=== PATIENT | female | born 1970 | race Caucasian/White ===

== ENCOUNTER 2022-03-26 10:00 | Emergency (ER) | payer MEDICARE, MEDICAID, SELFPAY ==
[2022-03-26 10:21] VITALS: BP 107/73; PULSE 91; RESP 14; TEMP 36.4; O2SAT 98; BMI 16.4
[2022-03-26 10:27] VITALS: BP 150/73; PULSE 101; O2SAT 95
[2022-03-26 11:15] LABS: Add Urine Microscopic? NO; Charge for UA Resulting for Rev
[2022-03-26 11:16] LABS: Basophils % 0.6 %; Eosinophils # 0.1 10^3/uL (0.0-0.8); Hematocrit 37.3 % (37.0-47.0); Hemoglobin 12.7 g/dL (11.5-15.3); Lymphocytes # 1.9 10^3/uL (0.8-4.8); Lymphocytes % 29.2 %; Mean Corpuscular Hemoglobin 30.5 pg (28.0-34.0); Mean Corpuscular Volume 89.7 fl (81-99); Mean Platelet Volume 9.6 fL (7.4-10.4); Monocytes # 0.4 10^3/uL (0.2-0.9); Monocytes % 6.7 %; Neutrophils # 3.91 10^3/uL (1.8-7.7); Neutrophils % 61.2 %; Nucleated Red Blood Cells % 0 %; Platelet Count 248 10^3/cmm (130-400); Red Blood Count 4.16 10^6/uL (4.1-5.3); Red Cell Distribution Width 12.5 % (12.1-15.1); White Blood Count 6.4 10^3/uL (4.0-10.0)
--- NOTE | 2022-03-26 11:18 | CT_ITS ---
WS: [id number] CT ABDOMEN AND PELVIS WITH CONTRAST HISTORY: Abdominal pain with nausea. TECHNIQUE: Imaging performed of the abdomen and pelvis with IV contrast. Single phase imaging of the abdomen. Coronal and sagittal reformats are submitted. All CT scans at [facility] use at meme st one of these dose optimization techniques: automated exposure control; mA and/or kV adjustment per patient size (includes targeted exams where dose is matched to clinical indication); or iterative re construction. IV CONTRAST: Omnipaque 350; 75 mL IV. Oral contrast: No DLP: 497.42 mGy.cm COMPARISON: None available. Lower thorax: Lung bases are clear. Heart is normal size. No hiatal hernia. Liver/biliary system: Normal size with no intrahepatic dilatation. Gallbladder: Normal. No gallstones or wall thickening. No pericholecystic fluid. Pancreas: Normal size pancreas and pancreatic duct. No adjacent inflammation. Spleen: Normal size spleen. No mass or infarct. Adrenal glands: Normal. Right kidney: Normal size kidney. Simple cyst upper pole measures 17 x 13 mm. There are additional sc attered cortical small hypodensities throughout the kidney. No perinephric stranding. No obstruction. Left kidney: Normal size kidney. There are a few scattered hypodensities throughout the renal cortex. No adjacent stranding or obstruction. Aorta: Mild atherosclerosis with no aneurysm. Lymphadenopathy: None. Free fluid: None. GI tract: Nondistended stomach. No obstruction. Prior appendectomy. There is extensive fecal retentio n. No obstructive pattern or wall thickening. No pneumatosis. Abdominal wall: Unremarkable abdominal wall. No hernia. Pelvis: No free fluid or adenopathy within the pelvis. Low-attenuation collection in the LEFT perineu m measures 2.0 x 1.8 cm. This may be a small Kajal's duct cyst. Bones: Unremarkable. CT/CT abdomen pelvis w con* [id number] IMPRESSION: 1. Bilateral subcentimeter scattered low-attenuation foci within each kidney. This can be seen with pyelonephritis. There is no obstruction or significant pe rinephric stranding. 2. 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 Suspiciou s for mild vasculitis. Less likely median arcuate syndrome. No GI tract ischemi c changes. This should be further evaluated by dedicated CT angiogram to confir m this finding. 3. Prior appendectomy. 4. Diffuse constipation.
--- NOTE | 2022-03-26 11:19 | W.ED.ABDPA2 ---
HPI - Abdominal Pain General: Chief Complaint: Abdominal Pain Stated Complaint: Surgery on stomach, pain Time Seen by Provider: 03/26/22 10:00 Source: patient Mode of arrival: ambulatory Limitations: no limitations History of Present Illness: 52-year-old female who about 5 to 6 weeks ago was traveling and was in [place] developed it sounds like a volvulus of her any in any event she had a resection with primary anastomosis of her proximal ascending colon and distal ileum. She sounds as if she has had a relatively normal recovery since then. She had a normal bowel movement yesterday she reports 1 bowel movement with some red streaked stool within the last 48 hours. She has not had any vomiting. She denies dysuria urgency or frequency no shortness of breath no chest pain. She is concerned she has infection because a slight red and swollen area at the inferior aspect of the midline incision. No fever. MD elicited complaint: abdominal pain Pain Consistency: intermittent Location: Suprapubic Severity: mild Quality: cramping Radiation: none Exacerbating factors: nothing Relieving factors: nothing Associated Symptoms: Reports change in stool character, GI cramping and hematochezia; Denies anorexia, belching, bloating, change in bowel habits, chills, coffee ground emesis, constipation, diarrhea, dyspepsia, dysuria, excessive flatus, fever(s), heartburn, hematuria, hematemesis, fecal incontinence, loose stools, melena, nausea, poor appetite, syncope and vomiting Review of Systems Const: Denies: fever(s), chills, fatigue or malaise ENMT: Denies: throat pain, ear or mastoid pain, nasal discharge or nasal congestion Card: Denies: chest pain, palpitations, irregular heart rhythm, edema or syncope Resp: Denies: dyspnea, productive cough or non-productive cough GI: Reports: abdominal pain, GI cramping, change in stool character and hematochezia; Denies: nausea, vomiting, hematemesis, coffee ground emesis, heartburn, diarrhea, constipation, bloating, belching, excessive flatus, fecal incontinence, change in bowel habits or melena : Denies: flank pain, difficulty voiding, dysuria, urinary frequency, urinary urgency or hematuria Skin/Breast: Denies: rash or pruritus PFSH ED PFSH: Medical History (Updated 03/26/22 @ 13:17 by David Polanco DO) No pertinent past medical history Surgical History (Updated 03/26/22 @ 13:17 by David Polanco DO) History of appendectomy History of bowel resection Social History (Updated 03/26/22 @ 11:24 by David Polanco DO) Smoking and tobacco status: current every day smoker Alcohol intake: never Physical Exam Const: COMMON NORMALS: no acute distress GENERAL APPEARANCE: cooperative and comfortable ORIENTATION/CONSCIOUSNESS: Yes awake, Yes oriented to person, Yes oriented to place and Yes oriented to time HENMT: COMMON NORMALS: normocephalic, atraumatic and hearing grossly normal bilaterally HEAD & SCALP: normocephalic and atraumatic Neck/C-Spine: COMMON NORMALS: no JVD Lymph: LYMPHATIC: no lymphadenopathy noted and no lymphedema noted Resp: COMMON NORMALS: normal respiratory effort, No retractions, No use of accessory muscles and clear to auscultation bilaterally AUSCULTATION: clear to auscultation bilaterally Cardio: COMMON NORMALS: no JVD, regular rate, regular rhythm and No murmurs present (Cardio) RATE: regular rate RHYTHM: regular rhythm GI: COMMON NORMALS: Soft to palpation and No hepatosplenomegaly present AUSCULTATION: Yes normoactive bowel sounds PALPATION: Yes Soft to palpation, No Tenderness to palpation present (GI), No Guarding due to palpation present (GI) and Yes No hepatosplenomegaly present Extremity: COMMON NORMALS: normal to inspection, capillary refill normal, no clubbing, cyanosis or edema, no calf tenderness and no pedal edema Neuro: SENSORIUM/ORIENTATION: Yes oriented to person, Yes oriented to place and Yes oriented to time Skin: COMMON NORMALS: no rashes or lesions noted GENERAL SKIN EXAM: no rashes or lesions noted Course Vital Signs: Vital signs: Vital Signs Temperature 97.5 F L 03/26/22 10:21 Pulse Rate 101 H 03/26/22 13:36 Respiratory Rate 14 03/26/22 10:21 Blood Pressure 137/77 03/26/22 13:36 Pulse Oximetry 98 03/26/22 13:36 MDM - Abdominal Pain Medical Decision Making CT shows rami gas and retained stool no signs of infection. Question on the CT above Hello nephritis but she had no urinary tract symptoms her UA is unremarkable discharge home can use [id number] medications for relief of constipation. The consult area of concern that she had a long incision on exam sterile stitch abscess just observe for now Medical Records I reviewed the patient's medical records. Lab Data I reviewed the patient's lab results. : 03/26/22 11:05 03/26/22 11:05 Labs/Radiology: Radiology Impressions Abdomen/Pelvis CT 03/26/22 11:18 IMPRESSION: 1. Bilateral subcentimeter scattered low-attenuation foci within each kidney. This can be seen with pyelonephritis. There is no obstruction or significant perinephric stranding. 2. 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 Suspicious for mild vasculitis. Less likely median arcuate syndrome. No GI tract ischemic changes. This should be further evaluated by dedicated CT angiogram to confirm this finding. 3. Prior appendectomy. 4. Diffuse constipation. Laboratory Results WBC 6.4 10^3/uL (4.0-10.0) 03/26/22 11:05 RBC 4.16 10^6/uL (4.1-5.3) 03/26/22 11:05 Hgb 12.7 g/dL (11.5-15.3) 03/26/22 11:05 Hct 37.3 % (37.0-47.0) 03/26/22 11:05 MCV 89.7 fl (81-99) 03/26/22 11:05 MCH 30.5 pg (28.0-34.0) 03/26/22 11:05 MCHC 34.0 g/dL (30.0-36.0) 03/26/22 11:05 RDW 12.5 % (12.1-15.1) 03/26/22 11:05 Plt Count 248 10^3/cmm (130-400) 03/26/22 11:05 MPV 9.6 fL (7.4-10.4) 03/26/22 11:05 Neut % (Auto) 61.2 % 03/26/22 11:05 Lymph % (Auto) 29.2 % 03/26/22 11:05 [place] % (Auto) 6.7 % 03/26/22 11:05 Eos % (Auto) 2.0 % 03/26/22 11:05 Baso % (Auto) 0.6 % 03/26/22 11:05 Neut # (Auto) 3.91 10^3/uL (1.8-7.7) 03/26/22 11:05 Lymph # (Auto) 1.9 10^3/uL (0.8-4.8) 03/26/22 11:05 [place] # (Auto) 0.4 10^3/uL (0.2-0.9) 03/26/22 11:05 Eos # (Auto) 0.1 10^3/uL (0.0-0.8) 03/26/22 11:05 Baso # (Auto) 0.0 10^3/uL (0.0-0.1) 03/26/22 11:05 Nucleated RBC % (auto) 0 % 03/26/22 11:05 Nucleated RBCs # 0.0 /100WBC 03/26/22 11:05 Sodium 137 mmol/L (136-145) 03/26/22 11:05 Potassium 4.0 mmol/L (3.5-5.1) 03/26/22 11:05 Chloride 101 mmol/L (98-107) 03/26/22 11:05 Carbon Dioxide 21 mmol/L (22-29) L 03/26/22 11:05 Anion Gap 19.0 (5-19) 03/26/22 11:05 BUN 27 mg/dL (6-20) H 03/26/22 11:05 Creatinine 1.5 mg/dL (0.5-0.9) H 03/26/22 11:05 GFR Calculation 36.5 mL/min (90-130) L 03/26/22 11:05 Glucose 93 mg/dL (65-115) 03/26/22 11:05 Calculated Osmolality 289 mOsm/kg (285-295) 03/26/22 11:05 Calcium 9.6 mg/dL (8.5-10.5) 03/26/22 11:05 Total Bilirubin 0.2 mg/dL (0.15-1.2) 03/26/22 11:05 AST 10 U/L (0-32) 03/26/22 11:05 ALT 9 U/L (0-33) 03/26/22 11:05 Alkaline Phosphatase 107 IU/L (35-105) H 03/26/22 11:05 Total Protein 7.6 g/dL (6.6-8.7) 03/26/22 11:05 Albumin 4.5 g/dL (3.5-5.2) 03/26/22 11:05 Globulin 3.1 g/dL (1.3-4.6) 03/26/22 11:05 Lipase 37 U/L (13-60) 03/26/22 11:05 Urine Color Yellow (Yellow) 03/26/22 11:00 Urine Appearance Clear (CLEAR) 03/26/22 11:00 Urine pH 5 (5-7) 03/26/22 11:00 Ur Specific [place] 1.025 (1.005-1.030) 03/26/22 11:00 Urine Protein Neg (Negative) 03/26/22 11:00 Urine Glucose (UA) Norm (Normal) 03/26/22 11:00 Urine Ketones Negative (Negative) 03/26/22 11:00 Urine Blood Neg (Negative) 03/26/22 11:00 Urine Nitrate Negative (Negative) 03/26/22 11:00 Urine Bilirubin 1+ (Negative) H 03/26/22 11:00 Urine Urobilinogen Norm mg/dL (Negative) 03/26/22 11:00 Ur Leukocyte Esterase Negative (Negative) 03/26/22 11:00 Discharge Plan Discharge Patient Disposition: Home Clinical Impression: Postoperative stitch abscess, History of bowel resection, Constipation Discharge Orders: Discharge ED (Routine); Ordered 03/26/22 Ordered By: David Polanco Discharge Diet: Usual diet Discharge Activity: Resume usual activity Patient Instructions: Opioid Safety Activity Restrictions/Additional Instructions: You may use mild [id number] laxatives to relieve the constipation Coding Level of Care Code ED Senior Audit Manager for Chg Fwd Exam Comprehensive
[2022-03-26 11:22] LABS: Bilirubin Urine 1+ (Negative); Blood Urine Neg (Negative); Glucose Urine UA Norm (Normal); Ketones Urine Negative (Negative); Leukocyte Esterase Urine Negative (Negative); Nitrate Urine Negative (Negative); Protein Urine Neg (Negative); Specific Gravity, Urine 1.025 (1.005-1.030); Urine Appearance Clear (CLEAR); Urine Color Yellow (Yellow); Urobilinogen Urine Norm (Negative); pH Urine 5 (5-7)
[2022-03-26 11:34] LABS: Alanine Aminotransferase 9 U/L (0-33); Albumin Level 4.5 g/dL (3.5-5.2); Alkaline Phosphatase 107 IU/L (35-105); Aspartate Amino Transferase 10 U/L (0-32); Blood Urea Nitrogen 27 mg/dL (6-20); Calcium 9.6 mg/dL (8.5-10.5); Carbon Dioxide 21 mmol/L (22-29); Chloride 101 mmol/L (98-107); Globulin 3.1 g/dL (1.3-4.6); Glomerular Filtration Rate 36.5 mL/min (90-130); Glucose 93 mg/dL (65-115); Lipase 37 U/L (13-60); Osmolality Calculated 289 mOsm/kg (285-295); Sodium 137 mmol/L (136-145); Total Bilirubin 0.2 mg/dL (0.15-1.2); Total Protein 7.6 g/dL (6.6-8.7)
[2022-03-26] MEDS: iohexol 350 mg/mL 100 mL Btl IV (12:07)
[2022-03-26 12:27] VITALS: BP 123/64; PULSE 95; O2SAT 100
[2022-03-26 13:36] VITALS: BP 137/77; PULSE 101; O2SAT 98
== END 2022-03-26 13:35 | disposition home or self-care (01) ==
PROVIDERS: Emergency Provider Family Medicine
DX: T81.41XA Infection following a procedure, superficial incisional surgical site, initial encounter (principal); K59.00 Constipation, unspecified; Z90.49 Acquired absence of other specified parts of digestive tract; F17.210 Nicotine dependence, cigarettes, uncomplicated
CPT/HCPCS: 74177; 80053; 81003; 83690; 85025; 99285; Q9967

== ENCOUNTER 2022-12-18 10:18 | Observation (INO) | payer MEDICARE, MEDICAID, SELFPAY ==
[2022-12-18] VITALS (11 sets, daily range): BP systolic 142–168; BP diastolic 60–107; PULSE 72–103; RESP 16–22; TEMP 36.6–36.9; O2SAT 95–100; BMI 18.8
--- NOTE | 2022-12-18 10:22 | ED_ITS ---
HPI - Abdominal Pain General: Chief Complaint: Abdominal Pain Stated Complaint: Abd pains, N/V Time Seen by Provider: 12/18/22 10:21 History of Present Illness: Ms. Henriquez is a 52-year-old lady with history of bowel resection due to what sounds like volvulus presenting to the emergency department for abdominal pain. She reports worsening pain which has been gradual onset for approximately 1 week. Endorses periumbilical pain which is severe. She notes decreased bowel movements, nausea, vomiting, and increased reflux. Intensity is severe. Course has worsened. No other specific changes in health, exacerbating, or alleviating factors identified. Onset (ago): day(s) Pain Consistency: constant Location: Periumbilical Severity: severe Quality: aching and burning Radiation: none Migration to: no migration Exacerbating factors: eating and movement Relieving factors: nothing Associated Symptoms: Reports change in bowel habits, heartburn, nausea and vomiting Review of Systems General: Reports: 10 or more systems reviewed and unremarkable except in HPI and below GI: Reports: nausea, vomiting, heartburn and change in bowel habits PFSH ED PFSH: Medical History No pertinent past medical history Surgical History History of appendectomy History of bowel resection Social History Smoking and tobacco status: current every day smoker Alcohol intake: never Physical Exam Const: COMMON NORMALS: alert GENERAL APPEARANCE: cooperative and well developed HENMT: COMMON NORMALS: normocephalic and atraumatic HEAD & SCALP: normocephalic and atraumatic THROAT: posterior oropharynx normal Eye: COMMON NORMALS: conjunctivae normal CONJUNCTIVA: Yes conjunctivae normal SCLERA: sclerae normal Neck/C-Spine: COMMON NORMALS: supple GENERAL: Yes trachea midline Resp: COMMON NORMALS: clear to auscultation bilaterally EFFORT & INSPECTION: Yes able to speak in complete sentences AUSCULTATION: clear to auscultation bilaterally Cardio: COMMON NORMALS: regular rhythm RATE: tachycardic RHYTHM: regular rhythm GI: COMMON NORMALS: Soft to palpation PALPATION: Yes Soft to palpation, Yes Tenderness to palpation present (GI), No Guarding due to palpation present (GI) and No Rigid due to palpation Extremity: GENERAL: Yes normal exam except as noted and No edema Neuro: COMMON NORMALS: moves all extremities SENSORIUM/ORIENTATION: Yes alert and No Orientation impaired Psych: COMMON NORMALS: mental status grossly normal and Normal thought process present THOUGHT PROCESS: Normal thought process present Course Vital Signs: Vital signs: Vital Signs Temperature 97.8 F 12/19/22 15:08 Pulse Rate 96 12/19/22 15:08 Respiratory Rate 15 12/19/22 15:08 Blood Pressure 110/66 12/19/22 15:08 Pulse Oximetry 98 12/19/22 15:08 Oxygen Delivery Me thod Room Air 12/19/22 11:48 MDM - Abdominal Pain Medical Decision Making 52-year-old lady presenting to the emergency department for 1 week history of worsening abdominal pain. She is uncomfortable on exam and there is abdominal tenderness however she is nontoxic and there is no evidence of acute surgical abdomen. Rhythm with normal axis and intervals, no STEMI.. Labs notable for leukocytosis and hemoconcentration compared to prior. Metabolic panel with mild hypokalemia and mild ovation creatinine which is improved from prior. Lactic acid is elevated with improvement on repeat. No urinary tract infection.. CT demonstrates marked constipation and heterogeneous enhancement of the kidneys. Incidental findings noted. Patient treated with IV fluids, multiple rounds of antiemetic and analgesia, both enema and p.o. medications for constipation and on repeat has not had significant improvement that has been sustained. Most likely etiology of patient symptoms of severe constipation intractable to ED treatment. Given laboratory abnormalities patient requires inpatient management. The results of ED evaluation were discussed with the patient including plan for admission due to requirement for level of care not available if discharged to sc event significant worsening/deterioration. Patient agreeable with plan. Discussed with hospitalist service who was agreeable to admit patient. Medical Records I reviewed the patient's medical records. Lab Data I reviewed the patient's lab results. 12/19/22 08:05 12/19/22 08:05 Labs/Radiology: Radiology Impressions Abdomen/Pelvis CT 12/18/22 11:43 IMPRESSION: 1. Marked constipation. 2. No obstructive pattern or ischemia. 3. Mild heterogeneous enhancement of each kidney. Correlate for possible urinary tract infection. There is no obstruction. Laboratory Results WBC 12.8 10^3/uL (4.0-10.0) H 12/18/22 11:00 RBC 4.71 10^6/uL (4.1-5.3) 12/18/22 11:00 Hgb 14.6 g/dL (11.5-15.3) 12/18/22 11:00 Hct 42.2 % (37.0-47.0) 12/18/22 11:00 MCV 89.6 fl (81-99) 12/18/22 11:00 MCH 31.0 pg (28.0-34.0) 12/18/22 11:00 MCHC 34.6 g/dL (30.0-36.0) 12/18/22 11:00 RDW 11.4 % (12.1-15.1) L 12/18/22 11:00 Plt Count 311 10^3/cmm (130-400) 12/18/22 11:00 MPV 9.5 fL (7.4-10.4) 12/18/22 11:00 Neut % (Auto) 70.8 % 12/18/22 11:00 Lymph % (Auto) 21.2 % 12/18/22 11:00 [place] % (Auto) 6.6 % 12/18/22 11:00 Eos % (Auto) 0.5 % 12/18/22 11:00 Baso % (Auto) 0.4 % 12/18/22 11:00 Neut # (Auto) 9.06 10^3/uL (1.8-7.7) H 12/18/22 11:00 Lymph # (Auto) 2.7 10^3/uL (0.8-4.8) 12/18/22 11:00 [place] # (Auto) 0.8 10^3/uL (0.2-0.9) 12/18/22 11:00 Eos # (Auto) 0.1 10^3/uL (0.0-0.8) 12/18/22 11:00 Baso # (Auto) 0.1 10^3/uL (0.0-0.1) 12/18/22 11:00 Nucleated RBC % (auto) 0 % 12/18/22 11:00 Nucleated RBCs # 0.0 /100WBC 12/18/22 11:00 Sodium 137 mmol/L (136-145) 12/18/22 11:00 Potassium 3.3 mmol/L (3.5-5.1) L 12/18/22 11:00 Chloride 96 mmol/L (98-107) L 12/18/22 11:00 Carbon Dioxide 28 mmol/L (22-29) 12/18/22 11:00 Anion Gap 16.3 (5-19) 12/18/22 11:00 BUN 18 mg/dL (6-20) 12/18/22 11:00 Creatinine 1.1 mg/dL (0.5-0.9) H 12/18/22 11:00 GFR Calculation 52.2 mL/min (90-130) L 12/18/22 11:00 Glucose 93 mg/dL (65-115) 12/18/22 11:00 Calculated Osmolality 286 mOsm/kg (285-295) 12/18/22 11:00 Lactate 2.4 mmol/L (0.5-2.2) H 12/18/22 11:00 Calcium 9.6 mg/dL (8.5-10.5) 12/18/22 11:00 Total Bilirubin 0.3 mg/dL (0.15-1.2) 12/18/22 11:00 AST 13 U/L (0-32) 12/18/22 11:00 ALT 10 U/L (0-33) 12/18/22 11:00 Alkaline Phosphatase 86 U/L (35-105) 12/18/22 11:00 C-Reactive Protein 3.0 mg/L (0.0-4.9) 12/18/22 11:00 Total Protein 7.3 g/dL (6.6-8.7) 12/18/22 11:00 Albumin 4.2 g/dL (3.5-5.2) 12/18/22 11:00 Globulin 3.1 g/dL (1.3-4.6) 12/18/22 11:00 Lipase 53 U/L (13-60) 12/18/22 11:00 Procalcitonin 0.07 ng/mL (0-0.5) 12/18/22 11:00 TSH 1.14 uIU/mL (0.27-4.20) 12/18/22 11:00 Urine Color Yellow (Yellow) 12/18/22 12:40 Urine Appearance Clear (CLEAR) 12/18/22 12:40 Urine pH 7 (5-7) 12/18/22 12:40 Ur Specific [place] 1.010 (1.005-1.030) 12/18/22 12:40 Urine Protein Neg (Negative) 12/18/22 12:40 Urine Glucose (UA) Norm (Normal) 12/18/22 12:40 Urine Ketones Negative (Negative) 12/18/22 12:40 Urine Blood Neg (Negative) 12/18/22 12:40 Urine Nitrate Negative (Negative) 12/18/22 12:40 Urine Bilirubin Neg (Negative) 12/18/22 12:40 Urine Urobilinogen Neg mg/dL (Negative) 12/18/22 12:40 Ur Leukocyte Esterase Negative (Negative) 12/18/22 12:40 Discharge Plan Discharge Patient Disposition: Placed in Observation Admit Provider: Richard Sahu Clinical Impression: Constipation in female, Abdominal pain Discharge Diet: Advance as tolerated Discharge Activity: Resume usual activity Coding Level of Care Code ED Heavy Equipment Sales Manager for Nelig Keenan
--- NOTE | 2022-12-18 10:50 | ECG_ITS ---
[facility] Test Date: 2022-12-18 Pat Name: Lana Henriquez Department: Room: Gender: Female [employer] Tender: : 1970 Requested By: Keith Peace Order Number: [id number] Duglas MD: Gilma Moise M.D. Measurements Intervals [place] Rate: 106 P: 88 KS: 130 QRS: 78 QRSD: 89 T: 64 QT: 338 QTc: 451 Interpretive Statements SINUS TACHYCARDIA NONSPECIFIC ST & T-WAVE ABNORMALITY ABNORMAL RHYTHM ECG No previous ECG available for comparison Electronically Signed On 12-19-2022 0:11:13 CDT by Gilma Moise M.D. [id number]
[2022-12-18] MEDS: morphine 4 mg/mL SDV 1 mL IVP ×2 (11:05→13:11)
[2022-12-18] MEDS: ondansetron 2 mg/ML SDV 2 mL 4 MG IVP ×3 (11:05→21:02)
[2022-12-18] MEDS: sodium chloride 0.9% 500 ML IV (11:06)
[2022-12-18 11:15] LABS: Basophils # 0.1 10^3/uL (0.0-0.1); Basophils % 0.4 %; Eosinophils # 0.1 10^3/uL (0.0-0.8); Eosinophils % 0.5 %; Hematocrit 42.2 % (37.0-47.0); Hemoglobin 14.6 g/dL (11.5-15.3); Lymphocytes # 2.7 10^3/uL (0.8-4.8); Lymphocytes % 21.2 %; Mean Corpuscular HGB Conc 34.6 g/dL (30.0-36.0); Mean Corpuscular Volume 89.6 fl (81-99); Mean Platelet Volume 9.5 fL (7.4-10.4); Monocytes # 0.8 10^3/uL (0.2-0.9); Monocytes % 6.6 %; Neutrophils # 9.06 10^3/uL (1.8-7.7); Neutrophils % 70.8 %; Nucleated Red Blood Cells % 0 %; Platelet Count 311 10^3/cmm (130-400); Red Blood Count 4.71 10^6/uL (4.1-5.3); Red Cell Distribution Width 11.4 % (12.1-15.1); White Blood Count 12.8 10^3/uL (4.0-10.0)
[2022-12-18 11:36] LABS: Alanine Aminotransferase 10 U/L (0-33); Albumin Level 4.2 g/dL (3.5-5.2); Alkaline Phosphatase 86 U/L (35-105); Aspartate Amino Transferase 13 U/L (0-32); Blood Urea Nitrogen 18 mg/dL (6-20); Calcium 9.6 mg/dL (8.5-10.5); Carbon Dioxide 28 mmol/L (22-29); Chloride 96 mmol/L (98-107); Globulin 3.1 g/dL (1.3-4.6); Glomerular Filtration Rate 52.2 mL/min (90-130); Glucose 93 mg/dL (65-115); Lactate (Lactic Acid level) 2.4 mmol/L (0.5-2.2); Lipase 53 U/L (13-60); Osmolality Calculated 286 mOsm/kg (285-295); Sodium 137 mmol/L (136-145); Total Bilirubin 0.3 mg/dL (0.15-1.2); Total Protein 7.3 g/dL (6.6-8.7)
--- NOTE | 2022-12-18 11:43 | CT_ITS ---
WS: [id number] CT ABDOMEN AND PELVIS WITH CONTRAST HISTORY: periumbilical abd pain TECHNIQUE: Imaging performed of the abdomen and pelvis with IV contrast. Single phase imaging of the abdomen. Coronal and sagittal reformats are submitted. All CT scans at [facility] use at meme st one of these dose optimization techniques: automated exposure control; mA and/or kV adjustment per patient size (includes targeted exams where dose is matched to clinical indication); or iterative re construction. IV CONTRAST: Omnipaque 350; 75 mL IV. Oral contrast: No DLP: 294.83 mGy.cm COMPARISON: 03/26/2022 Lower thorax: Chronic emphysema. Heart is normal size. No hiatal hernia. Liver/biliary system: Normal size with no intrahepatic dilatation. Gallbladder: Normal. No gallstones or wall thickening. No pericholecystic fluid. Pancreas: Normal size pancreas. Pancreatic duct is mildly prominent but similar to the prior study. N o pancreatic head mass identified. Spleen: Normal size spleen. No mass or infarct. Adrenal glands: Normal. Right kidney: Normal size kidney. Upper pole cyst no obstruction. Variable enhancement but renal pare nchyma. Left kidney: Normal size kidney. Variable enhancement of the parenchyma. Aorta: Mild atherosclerosis with no aneurysm. Lymphadenopathy: None. Free fluid: None. GI tract: Nondistended stomach. No small bowel obstruction. Marked fecal retention and constipation. Anastomotic sutures are noted within the RIGHT colon. No ischemic changes. Prior appendectomy. Abdominal wall: Unremarkable abdominal wall. No hernia. Pelvis: No free fluid or adenopathy within the pelvis. Nondistended urinary bladder. No free fluid. Bones: Unremarkable. CT/CT abdomen pelvis w con* [id number] IMPRESSION: 1. Marked constipation. 2. No obstructive pattern or ischemia. 3. Mild heterogeneous enhancement of each kidney. Correlate for possible urina ry tract infection. There is no obstruction.
[2022-12-18 11:45] LABS: Anion Gap 16.3 (5-19); Potassium 3.3 mmol/L (3.5-5.1)
[2022-12-18] MEDS: iohexol 350 mg/mL 500 mL Btl (per mL) IV (12:31)
[2022-12-18 13:14] LABS: Add Urine Microscopic? NO; Charge for UA Resulting for Rev
[2022-12-18 13:23] LABS: Bilirubin Urine Neg (Negative); Blood Urine Neg (Negative); Glucose Urine UA Norm (Normal); Ketones Urine Negative (Negative); Leukocyte Esterase Urine Negative (Negative); Nitrate Urine Negative (Negative); Protein Urine Neg (Negative); Urine Appearance Clear (CLEAR); Urine Color Yellow (Yellow); Urobilinogen Urine Neg (Negative); pH Urine 7 (5-7)
[2022-12-18] MEDS: magnesium hydroxide 30 mL UDC PO (13:47)
[2022-12-18] MEDS: lactulose oral liq 20 gm/30 mL UDC PO (13:47)
[2022-12-18] MEDS: mineral oil 30 mL UDC PO (13:47)
[2022-12-18] MEDS: Fleet Enema 133 mL Enema PR (13:49)
[2022-12-18] MEDS: sodium chloride 0.9% 1,000 ML 999 ML IV (14:00)
[2022-12-18] MEDS: polyethylene glycol 3350 Pkt 17 gm PO ×2 (15:09→15:52)
--- NOTE | 2022-12-18 18:00 | PM.HP ---
Providers/Chief Complaint Admitting Physician: Richard Sahu MD Chief Complaint: Abd pains, N/V History of Present Illness Lana Henriquez is a 52 year old female with a past history of volvulus, requiring bowel resection, history of psoriasis who presents to [facility] for 2-week history of constipation. She tells me that she does not have regular bowel movements at baseline, but for the last 2 weeks she has felt quite constipated, having bloating, abdominal pain, no blood or black stools, feeling nauseous. Yesterday she was eating okay, but this morning, she is not able to keep anything down she feels nauseous, bloated having abdominal pain, she has received multiple bowel regimens but has not had a bowel movement in the ER she does tell me she had a bowel move 2 days ago but it was only alfonzo Review of Systems Const: Denies: fever(s) Card: Denies: chest pain Resp: Denies: dyspnea GI: Reports: abdominal pain and nausea : Denies: flank pain or difficulty voiding Musc: Denies: back pain Skin/Breast: Denies: rash Neuro: Denies: headache(s) Medications/Allergies Home Medications Medication Instructions Recorded Confirmed Last Taken Type acetaminophen 325 mg tablet 650 mg PO QID PRN Pain 12/18/22 12/18/22 Unknown History doxycycline hyclate 100 mg capsule 100 mg PO Q12H 12/18/22 12/18/22 Unknown History prednisone 50 mg tablet 50 mg PO DAILY 12/18/22 12/18/22 Unknown History Allergies Allergy/AdvReac Type Severity Reaction Status Date / Time No Known Allergies Allergy Verified 12/18/22 10:43 PFSH Acute PFSH: Medical History No pertinent past medical history Surgical History History of appendectomy History of bowel resection Social History Smoking and tobacco status: current every day smoker Alcohol intake: never Vitals/I&O/Wt Last Vital Signs Temp 98.4 F 12/18/22 10:30 Pulse 90 12/18/22 16:47 Resp 20 H 12/18/22 13:11 BP 147/90 04/05/23 16:47 Pulse Ox 98 12/18/22 16:47 O2 Del Method 12/18/22 16:47 Weight last 48 hrs Weight 45.359 kg Physical Exam Const: COMMON NORMALS: no acute distress and patient oriented x3 HENMT: COMMON NORMALS: normocephalic HEAD & SCALP: normocephalic Eye: COMMON NORMALS: Equal, round and reactive pupils present Neck/C-Spine: COMMON NORMALS: no lymphadenopathy Resp: COMMON NORMALS: normal respiratory effort, No retractions, No use of accessory muscles and clear to auscultation bilaterally AUSCULTATION: clear to auscultation bilaterally Cardio: COMMON NORMALS: no JVD, regular rate, regular rhythm, S1 normal heart sound present and S2 normal heart sound present RATE: regular rate RHYTHM: regular rhythm HEART SOUNDS: S1 normal heart sound present and S2 normal heart sound present GI: COMMON NORMALS: Normal to inspection, nondistended, normoactive bowel sounds present, Soft to palpation and non-tender Extremity: COMMON NORMALS: no pedal edema Neuro: COMMON NORMALS: patient oriented x3, CN's II-XII intact bilaterally and moves all extremities Psych: COMMON NORMALS: mental status grossly normal Data 12/18/22 11:00 12/18/22 11:00 Micro: Microbiology 12/18/22 11:36 Blood Culture - Preliminary Blood SPECIMEN COLLECTED 12/18/22 11:27 Blood Culture - Preliminary Blood SPECIMEN COLLECTED A&P Assessment and plan (1) Constipation in female: (2) Abdominal pain: (3) Dehydration: (4) FAYE (acute kidney injury): Plan Dehydration, FAYE -IV fluids -Zofran for nausea Constipation -Has received milk of mag, MiraLAX, Fleet enema in the emergency room without a bowel movement -IV fluids as above -We will start her on GoLytely hypokalemia -klor Attestations Medical Necessity Statement*: Patient requires hospitalization, outpatient observation, for dehydration, FAYE, constipation, abdominal pain Coding Level of Care Code Acute Code for Chg Fwd Diagnoses Constipation in female K59.00 Abdominal pain R10.9 Dehydration E86.0 FAYE (acute kidney injury) N17.9
[2022-12-18] MEDS: docusate sodium 100 mg Capsule PO (18:50)
[2022-12-18] MEDS: enoxaparin 40 mg/0.4 mL Syringe SUBCUT (18:50)
--- NOTE | 2022-12-18 19:21 | PC.NURSE ---
Addendum entered by Jaqueline Peralta RN 12/19/22 03:54: PRN morphine ordered. Original Note: Patient is c/o abdominal pain / and asking for something for pain. Dr. Baird notified.
[2022-12-18 19:33] LABS: Procalcitonin 0.07 ng/mL (0-0.5); Thyroid Stimulating Hormone 1.14 uIU/mL (0.27-4.20)
[2022-12-18] MEDS: peg /e-lyte soln 4,000 mL Btl 1500 ML PO (20:53)
[2022-12-18] MEDS: pantoprazole 40 mg SDV IVP (21:02)
[2022-12-18] MEDS: lidocaine 1% 5 ML in potassium chloride premix 100 ML 52.5 ML IV (21:02)
[2022-12-18] MEDS: morphine 4 mg/mL SDV 1 mL 2 MG IVP (21:02)
[2022-12-18] MEDS: dextrose 5%-sod chloride 0.9% 1,000 ML 100 ML IV (21:03)
[2022-12-19 00:34] VITALS: BP 150/89; PULSE 88; RESP 20; TEMP 36.5; O2SAT 99
[2022-12-19 02:23] VITALS: RESP 16
[2022-12-19] MEDS: morphine 4 mg/mL SDV 1 mL 2 MG IVP (02:23)
[2022-12-19 03:06] VITALS: BP 123/73; PULSE 85; RESP 19; TEMP 36.6; O2SAT 97
[2022-12-19 06:09] LABS: Basophils % 0.4 %; Eosinophils # 0.2 10^3/uL (0.0-0.8); Eosinophils % 3.4 %; Hematocrit 36.1 % (37.0-47.0); Hemoglobin 12.5 g/dL (11.5-15.3); Lymphocytes % 44.1 %; Mean Corpuscular HGB Conc 34.6 g/dL (30.0-36.0); Mean Corpuscular Hemoglobin 31.6 pg (28.0-34.0); Mean Corpuscular Volume 91.2 fl (81-99); Mean Platelet Volume 9.4 fL (7.4-10.4); Monocytes # 0.4 10^3/uL (0.2-0.9); Monocytes % 6.3 %; Neutrophils # 3.06 10^3/uL (1.8-7.7); Neutrophils % 45.7 %; Nucleated Red Blood Cells % 0 %; Platelet Count 206 10^3/cmm (130-400); Red Blood Count 3.96 10^6/uL (4.1-5.3); Red Cell Distribution Width 11.7 % (12.1-15.1); White Blood Count 6.7 10^3/uL (4.0-10.0)
--- NOTE | 2022-12-19 06:27 | PC.NURSE ---
Lab notified this nurse of changes on CBC from previous CBC. Redraw of CBC and BMP will be draw.
[2022-12-19 06:29] LABS: Anion Gap 12.4 (5-19); Blood Urea Nitrogen 8 mg/dL (6-20); Calcium 8.4 mg/dL (8.5-10.5); Carbon Dioxide 28 mmol/L (22-29); Chloride 104 mmol/L (98-107); Glomerular Filtration Rate 65.8 mL/min (90-130); Glucose 97 mg/dL (65-115); Magnesium 1.9 mg/dL (1.7-2.3); Osmolality Calculated 290 mOsm/kg (285-295); Phosphorus 3.2 mg/dL (2.5-4.5); Potassium 3.4 mmol/L (3.5-5.1); Sodium 141 mmol/L (136-145)
[2022-12-19 06:32] LABS: Lactic Sepsis W/Reflex 1.1 mmol/L (0.5-2.2)
[2022-12-19] MEDS: potassium chloride ER 20 mEq Tablet 40 MEQ PO (08:01)
[2022-12-19] MEDS: acetaminophen 325 mg Tablet 650 MG PO (08:01)
[2022-12-19 08:02] VITALS: BP 126/78; PULSE 76; RESP 15; TEMP 36.4; O2SAT 98
[2022-12-19] MEDS: ondansetron 2 mg/ML SDV 2 mL 4 MG IVP (08:02)
[2022-12-19 08:13] LABS: Basophils % 0.7 %; Eosinophils # 0.3 10^3/uL (0.0-0.8); Eosinophils % 4.6 %; Hematocrit 34.7 % (37.0-47.0); Hemoglobin 11.7 g/dL (11.5-15.3); Lymphocytes # 2.5 10^3/uL (0.8-4.8); Lymphocytes % 41.6 %; Mean Corpuscular HGB Conc 33.7 g/dL (30.0-36.0); Mean Corpuscular Volume 91.8 fl (81-99); Mean Platelet Volume 9.3 fL (7.4-10.4); Monocytes # 0.4 10^3/uL (0.2-0.9); Monocytes % 7.2 %; Neutrophils # 2.79 10^3/uL (1.8-7.7); Neutrophils % 45.7 %; Nucleated Red Blood Cells % 0 %; Platelet Count 180 10^3/cmm (130-400); Red Blood Count 3.78 10^6/uL (4.1-5.3); Red Cell Distribution Width 11.7 % (12.1-15.1); White Blood Count 6.1 10^3/uL (4.0-10.0)
[2022-12-19 08:35] LABS: Anion Gap 10.3 (5-19); Blood Urea Nitrogen 8 mg/dL (6-20); Calcium 8.2 mg/dL (8.5-10.5); Carbon Dioxide 30 mmol/L (22-29); Chloride 103 mmol/L (98-107); Glomerular Filtration Rate 65.8 mL/min (90-130); Glucose 91 mg/dL (65-115); Osmolality Calculated 288 mOsm/kg (285-295); Potassium 3.3 mmol/L (3.5-5.1); Sodium 140 mmol/L (136-145)
[2022-12-19] MEDS: docusate sodium 100 mg Capsule PO (08:52)
--- NOTE | 2022-12-19 11:06 | P.DS_ITS ---
Discharge Providers Date of Admission: 12/18/22 17:49 Date of Discharge: December 19, 2022 Attending Provider at Admission: Richard Sahu MD Attending Provider at Discharge: Richard Sahu MD Diagnoses at Discharge Discharge Diagnosis (1) Constipation in female: Status: Acute (2) Abdominal pain: Status: Acute (3) Dehydration: Status: Acute (4) FAYE (acute kidney injury): Status: Acute Reason for Visit Reason for Visit: Abd pains, N/V Hospital Course Hospital Course Lana Henriquez is a 52 year old female with a past history of volvulus, requiring bowel resection, history of psoriasis who presents to [facility] for 2-week history of constipation.? She tells me that she does not have regular bowel movements at baseline, but for the last 2 weeks she has felt quite constipated, having bloating, abdominal pain, no blood or black stools, feeling nauseous.? Yesterday she was eating okay, but this morning, she is not able to keep anything down she feels nauseous, bloated having abdominal pain, she has received multiple bowel regimens but has not had a bowel movement in the ER she does tell me she had a bowel move 2 days ago but it was only alfonzo Patient was admitted to [facility] for abdominal pain with constipation dehydration and FAYE. CT scan abdomen pelvis had no acute findings, she received bowel regimen in the emergency room without having a bowel movement. She was managed with GoLytely on the floors, she had a bowel movement, symptomatology significantly improved, receiving IV fluid therapy. Discharged home with instructions on bowel regimen, increasing fiber in her diet, follow-up with general surgery for consideration of colonoscopy. Physical Exam Const: COMMON NORMALS: no acute distress and patient oriented x3 Resp: COMMON NORMALS: normal respiratory effort, No retractions, No use of accessory muscles and clear to auscultation bilaterally AUSCULTATION: clear to auscultation bilaterally Cardio: COMMON NORMALS: regular rate, regular rhythm, S1 normal heart sound present and S2 normal heart sound present RATE: regular rate RHYTHM: r egular rhythm HEART SOUNDS: S1 normal heart sound present and S2 normal heart sound present GI: COMMON NORMALS: Normal to inspection, nondistended, normoactive bowel sounds present and non-tender Extremity: COMMON NORMALS: no pedal edema Neuro: COMMON NORMALS: patient oriented x3 Psych: COMMON NORMALS: mental status grossly normal Discharge Data Studies Completed and Pending Completed Studies During Hospitalization Category Date Time Status CT abdomen pelvis w con* [id number] Stat Cat Scan 12/18/22 11:43 Completed Pending at discharge Category Date Time Status Basic Metabolic Panel AM LABS Lab 12/20/22 04:00 Ordered Basic Metabolic Panel AM LABS Lab 12/21/22 04:00 Ordered Blood Culture Stat Lab 12/18/22 11:36 Results Complete Blood Count w/Auto AM LABS Lab 12/20/22 04:00 Ordered Complete Blood Count w/Auto AM LABS Lab 12/21/22 04:00 Ordered Radiology Impressions Abdomen/Pelvis CT 12/18/22 11:43 IMPRESSION: 1. Marked constipation. 2. No obstructive pattern or ischemia. 3. Mild heterogeneous enhancement of each kidney. Correlate for possible urinary tract infection. There is no obstruction. Laboratory Results WBC 6.1 10^3/uL (4.0-10.0) 12/19/22 08:05 RBC 3.78 10^6/uL (4.1-5.3) L 12/19/22 08:05 Hgb 11.7 g/dL (11.5-15.3) 12/19/22 08:05 Hct 34.7 % (37.0-47.0) L 12/19/22 08:05 MCV 91.8 fl (81-99) 12/19/22 08:05 MCH 31.0 pg (28.0-34.0) 12/19/22 08:05 MCHC 33.7 g/dL (30.0-36.0) 12/19/22 08:05 RDW 11.7 % (12.1-15.1) L 12/19/22 08:05 Plt Count 180 10^3/cmm (130-400) 12/19/22 08:05 MPV 9.3 fL (7.4-10.4) 12/19/22 08:05 Neut % (Auto) 45.7 % 12/19/22 08:05 Lymph % (Auto) 41.6 % 12/19/22 08:05 [place] % (Auto) 7.2 % 12/19/22 08:05 Eos % (Auto) 4.6 % 12/19/22 08:05 Baso % (Auto) 0.7 % 12/19/22 08:05 Neut # (Auto) 2.79 10^3/uL (1.8-7.7) 12/19/22 08:05 Lymph # (Auto) 2.5 10^3/uL (0.8-4.8) 12/19/22 08:05 [place] # (Auto) 0.4 10^3/uL (0.2-0.9) 12/19/22 08:05 Eos # (Auto) 0.3 10^3/uL (0.0-0.8) 12/19/22 08:05 Baso # (Auto) 0.0 10^3/uL (0.0-0.1) 12/19/22 08:05 Nucleated RBC % (auto) 0 % 12/19/22 08:05 Nucleated RBCs # 0.0 /100WBC 12/19/22 08:05 Sodium 140 mmol/L (136-145) 12/19/22 08:05 Potassium 3.3 mmol/L (3.5-5.1) L 12/19/22 08:05 Chloride 103 mmol/L (98-107) 12/19/22 08:05 Carbon Dioxide 30 mmol/L (22-29) H 12/19/22 08:05 Anion Gap 10.3 (5-19) 12/19/22 08:05 BUN 8 mg/dL (6-20) 12/19/22 08:05 Creatinine 0.9 mg/dL (0.5-0.9) 12/19/22 08:05 GFR Calculation 65.8 mL/min (90-130) L 12/19/22 08:05 Glucose 91 mg/dL (65-115) 12/19/22 08:05 Calculated Osmolality 288 mOsm/kg (285-295) 12/19/22 08:05 Lactic Acid 1.1 mmol/L (0.5-2.2) 12/19/22 05:56 Lactate 2.4 mmol/L (0.5-2.2) H 12/18/22 11:00 Calcium 8.2 mg/dL (8.5-10.5) L 12/19/22 08:05 Phosphorus 3.2 mg/dL (2.5-4.5) 12/19/22 05:56 Magnesium 1.9 mg/dL (1.7-2.3) 12/19/22 05:56 Total Bilirubin 0.3 mg/dL (0.15-1.2) 12/18/22 11:00 AST 13 U/L (0-32) 12/18/22 11:00 ALT 10 U/L (0-33) 12/18/22 11:00 Alkaline Phosphatase 86 U/L (35-105) 12/18/22 11:00 C-Reactive Protein 3.0 mg/L (0.0-4.9) 12/18/22 11:00 Total Protein 7.3 g/dL (6.6-8.7) 12/18/22 11:00 Albumin 4.2 g/dL (3.5-5.2) 12/18/22 11:00 Globulin 3.1 g/dL (1.3-4.6) 12/18/22 11:00 Lipase 53 U/L (13-60) 12/18/22 11:00 Procalcitonin 0.07 ng/mL (0-0.5) 12/18/22 11:00 TSH 1.14 uIU/mL (0.27-4.20) 12/18/22 11:00 Urine Color Yellow (Yellow) 12/18/22 12:40 Urine Appearance Clear (CLEAR) 12/18/22 12:40 Urine pH 7 (5-7) 12/18/22 12:40 Ur Specific [place] 1.010 (1.005-1.030) 12/18/22 12:40 Urine Protein Neg (Negative) 12/18/22 12:40 Urine Glucose (UA) Norm (Normal) 12/18/22 12:40 Urine Ketones Negative (Negative) 12/18/22 12:40 Urine Blood Neg (Negative) 12/18/22 12:40 Urine Nitrate Negative (Negative) 12/18/22 12:40 Urine Bilirubin Neg (Negative) 12/18/22 12:40 Urine Urobilinogen Neg mg/dL (Negative) 12/18/22 12:40 Ur Leukocyte Esterase Negative (Negative) 12/18/22 12:40 Vitals Last Vital Signs Temp 97.6 F 12/19/22 08:02 Pulse 76 12/19/22 08:02 Resp 15 12/19/22 08:02 BP 126/78 12/19/22 08:02 Pulse Ox 98 12/19/22 08:02 O2 Del Method 12/19/22 08:02 Discharge Plan Discharge Patient Disposition: Home Condition: Stable Prescriptions: New docusate sodium 100 mg Capsule 100 mg PO BID 30 Days Qty: 60 0RF polyethylene glycol 3350 [Miralax] 17 gram powder in packet 17 g PO DAILY PRN (Reason: constipation) 30 Days Qty: 30 0RF Continued acetaminophen 325 mg Tablet 650 mg PO QID PRN (Reason: Pain) Discontinued doxycycline hyclate 100 mg capsule 100 mg PO Q12H prednisone 50 mg tablet 50 mg PO DAILY Discharge Orders: Discharge Order (Routine); Ordered 12/19/22 Ordered By: Richard Sahu Referrals: Bertrand Toure DO [Physician] - 1 month (colosnoscpy) Discharge Diet: Advance as tolerated Discharge Activity: Resume usual activity Patient Instructions: Opioid Safety Activity Restrictions/Additional Instructions: - Please drink plenty of electrolyte balanced fluids -If you have worsening abdominal pain go to the emergency room Discharge Attestations Time Spent in Discharge Care*: greater than 30 min Quality Metrics Clinical Quality Measures [ No reported AMI, CVA or VTE this stay] Coding Level of Care Code 56526 Total time (in minutes) for Discharge: 40 Diagnoses Constipation in female K59.00 Abdominal pain R10.9 Dehydration E86.0 FAYE (acute kidney injury) N17.9
[2022-12-19 11:48] VITALS: BP 110/66; PULSE 96; RESP 15; TEMP 36.6; O2SAT 98
[2022-12-19 15:08] VITALS: BP 110/66; PULSE 96; RESP 15; TEMP 36.6; O2SAT 98
== END 2022-12-19 14:59 | disposition home or self-care (01) ==
LOC: ER 16:44 → MEDSURG 17:49
PROVIDERS: Admitting Provider Family Medicine; Emergency Provider Emergency Medicine; Visit Provider Family Medicine
DX: K59.00 Constipation, unspecified (principal); E86.0 Dehydration; E87.6 Hypokalemia; N17.9 Acute kidney failure, unspecified; R00.0 Tachycardia, unspecified; F17.200 Nicotine dependence, unspecified, uncomplicated
CPT/HCPCS: 36415; 74177; 80048; 80053; 81003; 83605; 83690; 83735; 84100; 84145; 84443; 85025; 86140; 87040; 93005; 96372; 96374; 96375; 96376; 99285; C9113; G0378; J1650; J2270; J2405; J3480; J7030; J7040; J7042; Q9967

== ENCOUNTER 2022-12-31 13:44 | Emergency (ER) | payer MEDICARE, MEDICAID, SELFPAY ==
[2022-12-31] VITALS (9 sets, daily range): BP systolic 90–148; BP diastolic 58–104; PULSE 108; O2SAT 90–100; BMI 17.5
--- NOTE | 2022-12-31 14:01 | ED_ITS ---
HPI - General Adult General: Chief complaint: Abdominal Pain Stated complaint: Abdominal Pain Time Seen by Provider: 12/31/22 13:46 Source: patient Mode of arrival: ambulatory History of Present Illness: Two 2-year-old female presents to the emergency room with complaints of shaking cramping in her hands rapid breathing began about 15 minutes before she arrived. Shortly after arrival she did begin to feel better when he came in to talk to her she states she was worsening again. She is also complaining of some mild abdominal discomfort to the nurses however she only focused on her breathing issues and hand cramping when I talked to her. She did appear to be increasing her ventilation and was mildly hyperventilating while I was examining her. She denies any fevers sweats or chills any vomiting or diarrhea. Went back to the room and asked her about abdominal pain she states she had had some earlier but it is resolved now. Onset (ago): hour(s) Relieving factors: none Exacerbating factors: none Associated symptoms: Deny chest pain, confusion, cough, diaphoresis, decreased appetite, dyspnea, fevers/chills, headache(s), malaise, nausea, rash, palpitations, seizures, short of breath, syncope, vomiting or weakness Treatments prior to arrival: none Review of Systems Const: Denies: fever(s), chills, fatigue, malaise or diaphoresis ENMT: Denies: throat pain, ear or mastoid pain, nasal discharge or nasal congestion Card: Denies: chest pain, palpitations or syncope Resp: Denies: dyspnea GI: Denies: nausea or vomiting : Denies: flank pain, difficulty voiding, dysuria, urinary frequency or urinary urgency Skin/Breast: Denies: rash Neuro: Denies: headache(s) or confusion PFS ED PFSH: Medical History No pertinent past medical history Surgical History History of appendectomy History of bowel resection Social History Smoking and tobacco status: current every day smoker Alcohol intake: never Physical Exam Const: GENERAL APPEARANCE: cooperative and comfortable ORIENTATION/CONSCIOUSNESS: Yes awake, Yes oriented to person, Yes oriented to place and Yes oriented to time HENMT: COMMON NORMALS: normocephalic, atraumatic and hearing grossly normal bilaterally HEAD & SCALP: normocephalic and atraumatic Resp: COMMON NORMALS: normal respiratory effort, No retractions, No use of accessory muscles and clear to auscultation bilaterally AUSCULTATION: clear to auscultation bilaterally Cardio: COMMON NORMALS: regular rate, regular rhythm and No murmurs present (Cardio) RATE: regular rate RHYTHM: regular rhythm GI: COMMON NORMALS: Soft to palpation and No hepatosplenomegaly present AUSCULTATION: Yes normoactive bowel sounds PALPATION: Yes Soft to palpation, No Tenderness to palpation present (GI), No Guarding due to palpation present (GI) and Yes No hepatosplenomegaly present Extremity: COMMON NORMALS: normal to inspection, capillary refill normal, no clubbing, cyanosis or edema, no calf tenderness and no pedal edema Neuro: SENSORIUM/ORIENTATION: Yes oriented to person, Yes oriented to place and Yes oriented to time Skin: COMMON NORMALS: no rashes or lesions noted GENERAL SKIN EXAM: no rashes or lesions noted Course Vital Signs: Vital signs: Vital Signs Pulse Rate 108 H 12/31/22 13:58 Blood Pressure 132/89 12/31/22 13:58 Pulse Oximetry 100 12/31/22 13:58 Oxygen Delivery Me thod Room Air 12/31/22 13:58 MDM - General Adult Medical Decision Making Hyperventilation syndrome with mild acute kidney injury. Patient given 2 L of fluid will discharge home on hydroxyzine advised to follow-up with her primary care doctor for repeat renal function testing within the next week. Return to the ER if she has further problems. Medical Records I reviewed the patient's medical records. Lab Data I reviewed the patient's lab results. 12/31/22 13:55 12/31/22 13:55 Laboratory Results WBC 8.2 10^3/uL (4.0-10.0) 12/31/22 13:55 RBC 4.04 10^6/uL (4.1-5.3) L 12/31/22 13:55 Hgb 12.6 g/dL (11.5-15.3) 12/31/22 13:55 Hct 37.5 % (37.0-47.0) 12/31/22 13:55 MCV 92.8 fl (81-99) 12/31/22 13:55 MCH 31.2 pg (28.0-34.0) 12/31/22 13:55 MCHC 33.6 g/dL (30.0-36.0) 12/31/22 13:55 RDW 12.0 % (12.1-15.1) L 12/31/22 13:55 Plt Count 318 10^3/cmm (130-400) 12/31/22 13:55 MPV 9.1 fL (7.4-10.4) 12/31/22 13:55 Neut % (Auto) 65.2 % 12/31/22 13:55 Lymph % (Auto) 24.9 % 12/31/22 13:55 [place] % (Auto) 6.6 % 12/31/22 13:55 Eos % (Auto) 2.3 % 12/31/22 13:55 Baso % (Auto) 0.6 % 12/31/22 13:55 Neut # (Auto) 5.32 10^3/uL (1.8-7.7) 12/31/22 13:55 Lymph # (Auto) 2.0 10^3/uL (0.8-4.8) 12/31/22 13:55 [place] # (Auto) 0.5 10^3/uL (0.2-0.9) 12/31/22 13:55 Eos # (Auto) 0.2 10^3/uL (0.0-0.8) 12/31/22 13:55 Baso # (Auto) 0.1 10^3/uL (0.0-0.1) 12/31/22 13:55 Nucleated RBC % (auto) 0 % 12/31/22 13:55 Nucleated RBCs # 0.0 /100WBC 12/31/22 13:55 Specimen Type Arterial 12/31/22 14:18 Sample Site Radial, left 12/31/22 14:18 ABG pH 7.42 (7.35-7.45) 12/31/22 14:18 ABG pCO2 33.6 mmHg (35-45) L 12/31/22 14:18 ABG pO2 85.6 mmHg (80.0-100.0) 12/31/22 14:18 ABG HCO3 21.5 mmol/L (22-26) L 12/31/22 14:18 ABG O2 Saturation 97.3 12/31/22 14:18 ABG Base Excess -2.4 mmol/L (-2.0-2.0) L 12/31/22 14:18 Keith Test Pos 12/31/22 14:18 A-a O2 Gradient 2.7 mmHg (5-10) L 12/31/22 14:18 Hematocrit 38.4 % (37-47) 12/31/22 14:18 Hgb O2 Saturation 94.2 % (95-100) L 12/31/22 14:18 Carboxyhemoglobin 2.2 %THgb (0.4-20.1) 12/31/22 14:18 Methemoglobin 1.0 % (0.4-1.5) 12/31/22 14:18 Total Hemoglobin 12.5 g/dL (12-16) 12/31/22 14:18 Sodium 138.0 mmol/L (131-143) 12/31/22 14:18 Potassium 3.8 mmol/L (3.5-5.0) 12/31/22 14:18 Glucose 101.0 mg/dL (70-115) 12/31/22 14:18 Ionized Calcium 1.2 mmol/L (1.1-1.4) 12/31/22 14:18 O2 Delivery Device None 12/31/22 14:18 Engraver Pantograph ID [id number] 12/31/22 14:18 Sodium 134 mmol/L (136-145) L 12/31/22 13:55 Potassium 3.6 mmol/L (3.5-5.1) 12/31/22 13:55 Chloride 99 mmol/L (98-107) 12/31/22 13:55 Carbon Dioxide 22 mmol/L (22-29) 12/31/22 13:55 Anion Gap 16.6 (5-19) 12/31/22 13:55 BUN 28 mg/dL (6-20) H 12/31/22 13:55 Creatinine 1.8 mg/dL (0.5-0.9) H 12/31/22 13:55 GFR Calculation 29.5 mL/min (90-130) L 12/31/22 13:55 Glucose 74 mg/dL (65-115) 12/31/22 13:55 Calculated Osmolality 282 mOsm/kg (285-295) L 12/31/22 13:55 Calcium 9.3 mg/dL (8.5-10.5) 12/31/22 13:55 Total Bilirubin 0.5 mg/dL (0.15-1.2) 12/31/22 13:55 AST 13 U/L (0-32) 12/31/22 13:55 ALT 11 U/L (0-33) 12/31/22 13:55 Alkaline Phosphatase 83 U/L (35-105) 12/31/22 13:55 Total Protein 7.1 g/dL (6.6-8.7) 12/31/22 13:55 Albumin 4.1 g/dL (3.5-5.2) 12/31/22 13:55 Globulin 3.0 g/dL (1.3-4.6) 12/31/22 13:55 Lipase 52 U/L (13-60) 12/31/22 13:55 Discharge Plan Discharge Patient Disposition: Home Clinical Impression: Hyperventilation, Anxiety attack, Acute kidney injury Condition: Stable Prescriptions: New hydroxyzine HCl 25 mg tablet 25 mg PO Q8H PRN (Reason: anxiety) Qty: 14 0RF No Action acetaminophen 325 mg Tablet 650 mg PO QID PRN (Reason: Pain) docusate sodium 100 mg Capsule 100 mg PO BID 30 Days Qty: 60 0RF Miralax 17 gram powder in packet 17 g PO DAILY PRN (Reason: constipation) 30 Days Qty: 30 0RF Discharge Orders: Discharge ED (Routine); Ordered 12/31/22 Ordered By: David Polanco Discharge Diet: Usual diet Discharge Activity: Increase activity as tolerated Patient Instructions: Opioid Safety, Pain Management Activity Restrictions/Additional Instructions: You are seen today with complaints of anxiety chest and abdominal pain Labs showed that you are mildly hyperventilating when you arrived which I think is the cause of your hand cramping. Additionally your other labs showed a mild acute kidney injury likely from decreased fluid intake. You are given IV fluids. I recommend that you follow-up with your primary care doctor within a week to have your kidney function rechecked. You are also given hydroxyzine to use as needed for anxiety. Coding Level of Care Code ED Assistant Professor Of Business for [employer]
[2022-12-31] MEDS: LORazepam 2 mg/mL INJ 1 mL IVP (14:06)
[2022-12-31 14:07] LABS: Basophils # 0.1 10^3/uL (0.0-0.1); Basophils % 0.6 %; Eosinophils # 0.2 10^3/uL (0.0-0.8); Eosinophils % 2.3 %; Hematocrit 37.5 % (37.0-47.0); Hemoglobin 12.6 g/dL (11.5-15.3); Lymphocytes % 24.9 %; Mean Corpuscular HGB Conc 33.6 g/dL (30.0-36.0); Mean Corpuscular Hemoglobin 31.2 pg (28.0-34.0); Mean Corpuscular Volume 92.8 fl (81-99); Mean Platelet Volume 9.1 fL (7.4-10.4); Monocytes # 0.5 10^3/uL (0.2-0.9); Monocytes % 6.6 %; Neutrophils # 5.32 10^3/uL (1.8-7.7); Neutrophils % 65.2 %; Nucleated Red Blood Cells % 0 %; Platelet Count 318 10^3/cmm (130-400); Red Blood Count 4.04 10^6/uL (4.1-5.3); White Blood Count 8.2 10^3/uL (4.0-10.0)
[2022-12-31 14:26] LABS: Alanine Aminotransferase 11 U/L (0-33); Albumin Level 4.1 g/dL (3.5-5.2); Alkaline Phosphatase 83 U/L (35-105); Anion Gap 16.6 (5-19); Aspartate Amino Transferase 13 U/L (0-32); Blood Urea Nitrogen 28 mg/dL (6-20); Calcium 9.3 mg/dL (8.5-10.5); Carbon Dioxide 22 mmol/L (22-29); Chloride 99 mmol/L (98-107); Glomerular Filtration Rate 29.5 mL/min (90-130); Glucose 74 mg/dL (65-115); Lipase 52 U/L (13-60); Osmolality Calculated 282 mOsm/kg (285-295); Potassium 3.6 mmol/L (3.5-5.1); Sodium 134 mmol/L (136-145); Total Bilirubin 0.5 mg/dL (0.15-1.2); Total Protein 7.1 g/dL (6.6-8.7)
[2022-12-31 14:29] LABS: ABG PCO2 33.6 mmHg (35-45); ABG PH Result 7.42 (7.35-7.45); Alveolar-Arterial Oxygen Gradi 2.7 mmHg (5-10); Arterial Blood Gas Hematocrit 38.4 % (37-47); Base Excess ABG -2.4 mmol/L (-2.0-2.0); Blood Gas Allen Test Pos; Blood Gas Sample Type Arterial; Carboxyhemoglobin 2.2 %THgb (0.4-20.1); HCO3 ABG 21.5 mmol/L (22-26); HGB O2 Sat 94.2 % (95-100); Ionized Calcium Level - ABG 1.2 mmol/L (1.1-1.4); Oxygen Saturation ABG 97.3; PO2 ABG 85.6 mmHg (80.0-100.0); Potassium Level - ABG 3.8 mmol/L (3.5-5.0); Total Hemoglobin 12.5 g/dL (12-16)
[2022-12-31 14:31] LABS: Blood Gas Sample Site Radial, left
[2022-12-31] MEDS: sodium chloride 0.9% 1,000 ML 999 ML IV ×2 (14:51→16:12)
[2022-12-31 16:39] LABS: Add Urine Microscopic? NO; Charge for UA Resulting for Rev
[2022-12-31 17:00] LABS: Urine Appearance Clear (CLEAR); Urine Color Yellow (Yellow); pH Urine 5 (5-7)
[2022-12-31 17:01] LABS: Bilirubin Urine Neg (Negative); Blood Urine Neg (Negative); Glucose Urine UA Norm (Normal); Ketones Urine 1+ (Negative); Leukocyte Esterase Urine Negative (Negative); Nitrate Urine Negative (Negative); Protein Urine Neg (Negative); Urobilinogen Urine Neg (Negative)
[2022-12-31 17:09] LABS: Amphetamines Screen Urine Positive (Negative); Barbiturates Screen Urine Negative (Negative); Benzodiazepines Screen Urine Negative (Negative); Cocaine Screen Urine Negative (Negative); Opiate Screen Urine Negative (Negative); PCP Screen Urine Negative (Negative); THC Screen Urine Negative (Negative)
--- NOTE | 2023-01-03 13:26 | DCPLANNER ---
assistant store manager called patient due to no primary care physician - patient is seen at a clinic in [place].
== END 2022-12-31 17:35 | disposition home or self-care (01) ==
PROVIDERS: Emergency Provider Family Medicine
DX: R06.4 Hyperventilation (principal); F41.9 Anxiety disorder, unspecified; N17.9 Acute kidney failure, unspecified; F17.210 Nicotine dependence, cigarettes, uncomplicated
CPT/HCPCS: 36600; 80051; 80053; 80306; 81003; 82330; 82805; 83690; 85025; 96361; 96374; 99284; J2060; J7030

== ENCOUNTER → 2023-01-21 13:12 | Outpatient (BNVA) | payer MEDICARE, MEDICAID, SELFPAY | PROVIDERS: PCP Family Medicine; Visit Provider Surgery | DX: K59.00 Constipation, unspecified (principal); K21.9 Gastro-esophageal reflux disease without esophagitis | CPT/HCPCS: 99203 ==

== ENCOUNTER 2023-02-21 09:11 | Day surgery (SDC) | payer MEDICARE, MEDICAID, SELFPAY ==
[2023-02-21 09:43] VITALS: BP 151/115; PULSE 105; RESP 18; TEMP 36.1; O2SAT 100
[2023-02-21] MEDS: sodium chloride 0.9% 1,000 ML 30 ML IV (09:54)
--- NOTE | 2023-02-21 10:08 | ANES.PREANE2 ---
Pre-Anesthetic Assessment Height/Weight: Height 1.56 m Weight 88 g Temp Pulse Resp BP Pulse Ox O2 Del Method 97.0 F L 105 H 18 151/115 100 Room Air 02/21/23 09:43 02/21/23 09:43 02/21/23 09:43 02/21/23 09:43 02/21/23 09:43 02/21/23 09:43 Preop Diagnosis: Screening/constipation Operation Date: 02/21/23 10:45 Proposed Procedures p Colonoscopy 45278,Z12.11,K21.9(Not Applicable) - Bertrand Toure DO Familial anesthetic complications: None Was Beta Vanessa taken within 24 hours: N/A Was Clonidine taken within 24 hours: N/A Last intake: Intake Last Liquid Date 02/20/23 Last Liquid Time 23:59 Last Solid Date 02/19/23 Last Solid Time 12:00 Social Tobacco and No alcohol 3/4 ppd pack(s) per day 40 years pack years Exam alert, oriented x 3, clear to auscultation bilaterally (Diminished bilaterally) and regular rate & rhythm Airway Submandibular: within normal limits Cervical ROM: within normal limits Mallampati: Class II Dentition: false History/ROS No significant history except as noted and No significant complaints Pulmonary Exertional Dyspnea and Sleep Apnea CV/HEM Was supposed to get a pacemaker but never followed through [facility] TACHY[employer]ARD[facility] NONSPECIFIC [facility] & T-WAVE ABNORMALITY ABNORMAL RHYTHM ECG No previous ECG available for comparison Electronically Signed On 12-19-2022 0:11:13 CDT by Gilma LONG Chronic Renal Insufficiency Hepatic None reported GI Gastroesophageal Reflux Disease (None this am) History of pancreatitis, was in the hospital for a month (2003) Metabolic None reported Musc/skel Lower Back Pain and Osteoarthritis/DJD Neuropsych Anxiety, Headache and Neuropathy Anesthetic Plan ASA status: 3 Anesthesia: Anesthesia Evaluation, General and MAC Risk of > 500 ml blood loss (7ml/kg in children): No Medications/Allergies Home Medications Medication Instructions Recorded Confirmed Last Taken Type acetaminophen 325 mg tablet 650 mg PO QID PRN Pain 12/18/22 02/21/23 02/17/23 History pantoprazole 40 mg tablet,delayed 40 mg PO BID 6 weeks #84 tabs 01/21/23 02/21/23 Unknown Rx release (Protonix) Allergies Allergy/AdvReac Type Severity Reaction Status Date / Time No Known Allergies Allergy Verified 02/21/23 09:33 Current Medications Generic Name Dose Route Start Last Admin Trade Name Christopherq PRN Reason Stop Dose Admin Sodium Chloride 1,000 mls @ 30 mls/hr 02/21/23 09:30 02/21/23 09:54 Sodium Chloride 0.9% IV 02/22/23 09:29 30 mls/hr .Q24H GLADYS Administration PFSH Anesthesia Medical History CKD (chronic kidney disease) No pertinent past medical history Surgical History History of appendectomy History of bowel resection Social History (Updated 02/21/23 @ 09:42 by Jaqueline Johnson) Smoking and tobacco status: current every day smoker Alcohol intake: never Substance/Drug Use: unknown Data Anesthesia Cardiac Studies: No Data to Display
--- NOTE | 2023-02-21 12:18 | PM.HP ---
Providers/Chief Complaint Primary Care Provider: Marixa Brown DO Chief Complaint: Z12.11, K21.9 History of Present Illness Lana Henriquez is a 53 year old female here for a screening colonoscopy Medications/Allergies Home Medications Medication Instructions Recorded Confirmed Last Taken Type acetaminophen 325 mg tablet 650 mg PO QID PRN Pain 12/18/22 02/21/23 02/17/23 History pantoprazole 40 mg tablet,delayed 40 mg PO BID 6 weeks #84 tabs 01/21/23 02/21/23 Unknown Rx release (Protonix) Allergies Allergy/AdvReac Type Severity Reaction Status Date / Time No Known Allergies Allergy Verified 02/21/23 09:33 PFSH Acute PFSH: Medical History CKD (chronic kidney disease) No pertinent past medical history Surgical History History of appendectomy History of bowel resection Social History (Updated 02/21/23 @ 09:42 by Jaqueline Johnson) Smoking and tobacco status: current every day smoker Alcohol intake: never Substance/Drug Use: unknown Vitals/I&O/Wt Last Vital Signs Temp 97.0 F L 02/21/23 09:43 Pulse 105 H 02/21/23 09:43 Resp 18 02/21/23 09:43 BP 151/115 02/21/23 09:43 Pulse Ox 100 02/21/23 09:43 O2 Del Method Room Air 02/21/23 09:43 Weight last 48 hrs Weight 3.104 oz A&P Assessment and plan (1) Colon cancer screening: Plan Colonoscopy Attestations Medical Necessity Statement*: Home Coding Level of Care Code Acute Code for Chg Fwd Diagnoses Colon cancer screening Z12.11
[2023-02-21 12:52] VITALS: BP 120/89; PULSE 94; RESP 16; TEMP 36.2; O2SAT 99
[2023-02-21 13:08] VITALS: BP 115/86; PULSE 93; RESP 16; O2SAT 99
--- NOTE | 2023-02-21 13:59 | ANE.PACU2 ---
Inpatient post-anesthesia follow up: Airway intact: Yes Vital signs: Temperature 97.2 F Pulse Rate 93 Respiratory Rate 16 Blood Pressure 115/86 Pulse Oximetry 99 Oxygen Delivery Me thod Room Air Oxygen Flow Rate Fraction of Inspir ed Oxygen Hydration adequate: Yes Nausea and vomiting: No Pain level: 1 Mental status: Baseline
== END 2023-02-21 13:21 | disposition home or self-care (01) ==
PROVIDERS: PCP Family Medicine; Visit Provider Surgery
PROC: 0DJD8ZZ Inspection of Lower Intestinal Tract, Via Natural or Artificial Opening Endoscopic (ICD-10-PCS; CPT 45378; principal; 2023-02-21 10:45)
DX: R10.9 Unspecified abdominal pain (principal); K21.9 Gastro-esophageal reflux disease without esophagitis; Z86.010 Personal history of colon polyps; D12.3 Benign neoplasm of transverse colon; Z12.11 Encounter for screening for malignant neoplasm of colon; F17.210 Nicotine dependence, cigarettes, uncomplicated; G47.30 Sleep apnea, unspecified; N18.9 Chronic kidney disease, unspecified
CPT/HCPCS: 45385; 88305; J2405; J2704; J7030

== ENCOUNTER 2023-05-11 17:38 | Emergency (ER) | payer MEDICARE, MEDICAID, SELFPAY ==
[2023-05-11 17:41] VITALS: BP 142/86; PULSE 100; RESP 22; TEMP 36.6; O2SAT 98; BMI 16.9
[2023-05-11 18:12] VITALS: BP 155/76; PULSE 87; O2SAT 100
[2023-05-11 18:37] LABS: Basophils % 0.8 %; Eosinophils # 0.1 10^3/uL (0.0-0.8); Eosinophils % 2.1 %; Hematocrit 36.7 % (36-47); Lymphocytes # 1.9 10^3/uL (0.8-4.8); Lymphocytes % 36.6 %; Mean Corpuscular HGB Conc 33.8 g/dL (30-55); Mean Corpuscular Volume 91.8 fl (85-98); Mean Platelet Volume 9.4 fL (7.4-10.4); Monocytes # 0.5 10^3/uL (0.2-0.9); Monocytes % 9.9 %; Neutrophils # 2.64 10^3/uL (1.8-7.7); Neutrophils % 50.4 %; Nucleated Red Blood Cells % 0 %; Platelet Count 207 10^3/cmm (157-399); Red Cell Distribution Width 11.8 % (12.1-15.1); White Blood Count 5.24 10^3/uL (3.29-11.43)
[2023-05-11] MEDS: sodium chloride 0.9% 1,000 ML 999 ML IV ×2 (18:55→19:42)
[2023-05-11 18:57] LABS: Alanine Aminotransferase 11 U/L (0-33); Albumin Level 3.6 g/dL (3.5-5.2); Alkaline Phosphatase 85 U/L (35-105); Anion Gap 11.3 (5-19); Aspartate Amino Transferase 13 U/L (0-32); Blood Urea Nitrogen 18 mg/dL (6-20); Calcium 8.9 mg/dL (8.5-10.5); Carbon Dioxide 27 mmol/L (22-29); Chloride 105 mmol/L (98-107); Globulin 2.4 g/dL (1.3-4.6); Glucose 86 mg/dL (65-115); Lipase 82 U/L (13-60); Osmolality Calculated 289 mOsm/kg (285-295); Potassium 4.3 mmol/L (3.5-5.1); Sodium 139 mmol/L (136-145); Total Bilirubin 0.2 mg/dL (0.15-1.2)
[2023-05-11] MEDS: ketorolac 30 mg/mL INJ 15 MG IVP (18:57)
[2023-05-11 19:02] LABS: Alcohol Level < 10 mg/dL (0-10)
[2023-05-11 19:42] LABS: Add Urine Microscopic? NO; Charge for UA Resulting for Rev
[2023-05-11 19:57] LABS: Bilirubin Urine Neg (Negative); Blood Urine Neg (Negative); Glucose Urine UA Norm (Normal); Ketones Urine Negative (Negative); Leukocyte Esterase Urine Negative (Negative); Nitrate Urine Negative (Negative); Protein Urine Neg (Negative); Specific Gravity, Urine 1.005 (1.005-1.030); Urine Appearance Clear (CLEAR); Urine Color Colorless (Yellow); Urobilinogen Urine Neg (Negative); pH Urine 7 (5-7)
[2023-05-11 20:01] LABS: Amphetamines Screen Urine Positive (Negative); Barbiturates Screen Urine Negative (Negative); Benzodiazepines Screen Urine Negative (Negative); Cocaine Screen Urine Negative (Negative); Opiate Screen Urine Negative (Negative); PCP Screen Urine Negative (Negative); THC Screen Urine Negative (Negative)
--- NOTE | 2023-05-11 20:07 | CTR_ITS ---
PROCEDURE INFORMATION: Exam: CT Abdomen And Pelvis With Contrast Exam date and time: 05/11/2023 8:28 PM Age: 53 years old Clinical indication: Abdominal pain; Prior surgery; Surgery date: 6+ months; Surgery type: Bowel resection due to obstruction. Appy; Patient HX: C/O periumbilical pain; Additional info: Periumbilical/l flank pain TECHNIQUE: Imaging protocol: Computed tomography of the abdomen and pelvis with contrast. Radiation optimization: All CT scans at this facility use at least one of these dose optimization techniques: automated exposure control; mA and/or kV adjustment per patient size (includes targeted exams where dose is matched to clinical indication); or iterative reconstruction. Contrast material: OMNI 350; Contrast volume: 100 ml; Contrast route: INTRAVENOUS (IV); REPORTING DATA: Count of CT and Cardiac NM exams in prior 12 months: This patient has received [address] and 0 known cardiac nuclear medicine studies in the 12 months prior to the current study. COMPARISON: CT abdomen pelvis w con* [id number] 12/18/2022 12:29 PM RADIATION DOSE METRICS: Total DLP (mGy-cm): 327.73 FINDINGS: Diaphragm: Small hiatus hernia without obstruction. Liver: Normal. No mass. Gallbladder and bile ducts: Normal. No calcified stones. No ductal dilation. Pancreas: Normal. No ductal dilation. Spleen: Normal. No splenomegaly. Adrenal glands: Normal. No mass. Kidneys and ureters: Excreted contrast in both collecting systems. Stomach and bowel: No bowel obstruction or ileus. No bowel obstruction or ileus. Surgical sutures on the cecum most likely due to appendectomy. Appendix: No evidence of appendicitis. Intraperitoneal space: Unremarkable. No free air. No significant fluid collection. Vasculature: Unremarkable. No abdominal aortic aneurysm. Lymph nodes: Unremarkable. No enlarged lymph nodes. Urinary bladder: The urinary bladder is moderately distended up to 10 cm but no wall thickening or calculi. Reproductive: Unremarkable as visualized. Bones/joints: Unremarkable. No acute fracture. Soft tissues: Unremarkable. CT/CT abdomen pelvis w con* [id number] IMPRESSION: No acute abdominal or pelvic findings.
[2023-05-11] MEDS: ondansetron 2 mg/ML SDV 2 mL 4 MG IVP (20:14)
[2023-05-11] MEDS: morphine 4 mg/mL SDV 1 mL 2 MG IVP (20:15)
[2023-05-11 20:21] VITALS: TEMP 36.6
[2023-05-11] MEDS: iohexol 350 mg/mL 500 mL Btl (per mL) IV (20:30)
--- NOTE | 2023-05-11 20:36 | W.ED.ABDPA2 ---
HPI - Abdominal Pain General: Chief Complaint: Abdominal Pain Stated Complaint: abd pain, low back pain Time Seen by Provider: 05/11/23 17:49 Source: patient Mode of arrival: ambulatory Limitations: no limitations History of Present Illness: Patient presents emergency department today for complaints of low periumbilical pain and left flank pain now for the last 2 to 3 days. Patient states she has not recently had any vomiting or diarrhea but has not been eating or drinking much. She reports dysuria and seeing blood in her urine and thought she may be having a kidney stone. She denies fevers. No other similarly ill at home at this time. Review of Systems General: Reports: 10 or more systems reviewed and unremarkable except in HPI and below PFSH ED PFSH: Medical History CKD (chronic kidney disease) No pertinent past medical history Surgical History History of appendectomy History of bowel resection Social History Smoking and tobacco status: current every day smoker Alcohol intake: never Substance/Drug Use: unknown Physical Exam Const: COMMON NORMALS: patient oriented x3 and alert OTHER: Upon my arrival to the room, patient appears to have been in a seated position and had fallen forward onto the mattress. Patient was answering questions with her face buried into the mattress at first. HENMT: COMMON NORMALS: normocephalic, atraumatic, hearing grossly normal bilaterally and moist oral mucous membranes HEAD & SCALP: normocephalic and atraumatic Eye: COMMON NORMALS: Equal, round and reactive pupils present, EOMs intact bilaterally and conjunctivae normal CONJUNCTIVA: Yes conjunctivae normal PUPIL: Yes Equal, round and reactive pupils present Neck/C-Spine: COMMON NORMALS: full ROM and no JVD Lymph: LYMPHATIC: no lymphadenopathy noted Resp: COMMON NORMALS: normal respiratory effort, No retractions, No use of accessory muscles and clear to auscultation bilaterally AUSCULTATION: clear to auscultation bilaterally Cardio: COMMON NORMALS: no JVD, regular rate and regular rhythm RATE: regular rate RHYTHM: regular rhythm GI: OTHER: Patient with a scaphoid abdomen. Diminished bowel sounds throughout. Patient is tender to palpation indicating discomfort in all quadrants but, patient indicates tenderness primarily below the bellybutton region and flank though not made worse on palpation. Her abdomen is still soft. Back/Pelvis: COMMON NORMALS: no thoracic nor lumbar tenderness and thoraco-lumbar ROM normal OTHER: Left CVA tenderness Extremity: COMMON NORMALS: normal to inspection, full ROM and capillary refill normal Neuro: COMMON NORMALS: patient oriented x3 SENSORIUM/ORIENTATION: Yes alert Psych: COMMON NORMALS: mental status grossly normal, Normal thought process present, cooperative, normal affect and activity/motor behavior normal THOUGHT PROCESS: Normal thought process present Skin: COMMON NORMALS: no rashes or lesions noted and no wounds GENERAL SKIN EXAM: no rashes or lesions noted Course Vital Signs: Vital signs: Vital Signs Temperature 97.9 F 05/11/23 21:51 Pulse Rate 87 05/11/23 21:51 Respiratory Rate 22 H 05/11/23 21:51 Blood Pressure 155/76 05/11/23 21:51 Pulse Oximetry 100 05/11/23 21:51 Oxygen Delivery Me thod Room Air 05/11/23 18:12 MDM - Abdominal Pain Medical Decision Making Lab work is generally unremarkable. Urinalysis revealed no signs of blood or bacteria. Since at this time we cannot indicate UTI or pyelonephritis as a cause of her symptoms I did proceed on with a CT scan. CT was read negative but, I do appreciate a large stool burden throughout. Patient was given 2 L of fluids here. I noticed on her CT examination her bladder was extremely distended and, with her complaints of low urine output and other urinary symptoms, I did request a postvoid residual bladder scan to make sure patient was not dealing with urinary retention. Patient only had a little over 100 cc postvoid so at this time, I am not concerned about retention. Discussed with patient that she was a little dry here in the emergency department and discussed findings suspicious for some constipation on her CT. Patient was given a prescription for MiraLAX and recommended to take a capful twice a day for the next couple of days to increase stool output. Went over return precautions. Recommended a follow-up appointment primary care later this week for general recheck. Differential Diagnosis Likely abdominal pain, calculus of kidney, constipation, diverticulitis, gastroenteritis and pancreatitis; Unlikely acute appendicitis Lab Data 05/11/23 18:32 05/11/23 18:32 Labs/Radiology: Radiology Impressions Abdomen/Pelvis CT 05/11/23 20:07 IMPRESSION: No acute abdominal or pelvic findings. Laboratory Results WBC 5.24 10^3/uL (3.29-11.43) 05/11/23 18:32 RBC 4.00 10^6/uL (3.85-5.65) 05/11/23 18:32 Hgb 12.40 g/dL (11.27-16.99) 05/11/23 18:32 Hct 36.7 % (36-47) 05/11/23 18:32 MCV 91.8 fl (85-98) 05/11/23 18:32 MCH 31.0 pg (27-33) 05/11/23 18:32 MCHC 33.8 g/dL (30-55) 05/11/23 18:32 RDW 11.8 % (12.1-15.1) L 05/11/23 18:32 Plt Count 207 10^3/cmm (157-399) 05/11/23 18:32 MPV 9.4 fL (7.4-10.4) 05/11/23 18:32 Neut % (Auto) 50.4 % 05/11/23 18:32 Lymph % (Auto) 36.6 % 05/11/23 18:32 [place] % (Auto) 9.9 % 05/11/23 18:32 Eos % (Auto) 2.1 % 05/11/23 18:32 Baso % (Auto) 0.8 % 05/11/23 18:32 Neut # (Auto) 2.64 10^3/uL (1.8-7.7) 05/11/23 18:32 Lymph # (Auto) 1.9 10^3/uL (0.8-4.8) 05/11/23 18:32 [place] # (Auto) 0.5 10^3/uL (0.2-0.9) 05/11/23 18: Eos # (Auto) 0.1 10^3/uL (0.0-0.8) 05/11/23 18:32 Baso # (Auto) 0.0 10^3/uL (0.0-0.1) 05/11/23 18:32 Nucleated RBC % (auto) 0 % 05/11/23 18:32 Nucleated RBCs # 0.0 /100WBC 05/11/23 18:32 Sodium 139 mmol/L (136-145) 05/11/23 18:32 Potassium 4.3 mmol/L (3.5-5.1) 05/11/23 18:32 Chloride 105 mmol/L (98-107) 05/11/23 18:32 Carbon Dioxide 27 mmol/L (22-29) 05/11/23 18:32 Anion Gap 11.3 (5-19) 05/11/23 18:32 BUN 18 mg/dL (6-20) 05/11/23 18:32 Creatinine 1.2 mg/dL (0.5-0.9) H 05/11/23 18:32 GFR Calculation 47.0 mL/min (90-130) L 05/11/23 18:32 Glucose 86 mg/dL (65-115) 05/11/23 18:32 Calculated Osmolality 289 mOsm/kg (285-295) 05/11/23 18:32 Calcium 8.9 mg/dL (8.5-10.5) 05/11/23 18:32 Total Bilirubin 0.2 mg/dL (0.15-1.2) 05/11/23 18:32 AST 13 U/L (0-32) 05/11/23 18:32 ALT 11 U/L (0-33) 05/11/23 18:32 Alkaline Phosphatase 85 U/L (35-105) 05/11/23 18:32 Total Protein 6.0 g/dL (6.6-8.7) L 05/11/23 18:32 Albumin 3.6 g/dL (3.5-5.2) 05/11/23 18:32 Globulin 2.4 g/dL (1.3-4.6) 05/11/23 18:32 Lipase 82 U/L (13-60) H 05/11/23 18:32 Lipase Cancelled 05/11/23 18:32 Urine Color Colorless (Yellow) 05/11/23 19:39 Urine Appearance Clear (CLEAR) 05/11/23 19:39 Urine pH 7 (5-7) 05/11/23 19:39 Ur Specific [place] 1.005 (1.005-1.030) 05/11/23 19:39 Urine Protein Neg (Negative) 05/11/23 19:39 Urine Glucose (UA) Norm (Normal) 05/11/23 19:39 Urine Ketones Negative (Negative) 05/11/23 19:39 Urine Blood Neg (Negative) 05/11/23 19:39 Urine Nitrate Negative (Negative) 05/11/23 19:39 Urine Bilirubin Neg (Negative) 05/11/23 19:39 Urine Urobilinogen Neg mg/dL (Negative) 05/11/23 19:39 Ur Leukocyte Esterase Negative (Negative) 05/11/23 19:39 Urine Opiates Screen Negative ng/mL (Negative) 05/11/23 19:39 Ur Barbiturates Screen Negative ng/mL (Negative) 05/11/23 19:39 Ur Phencyclidine Scrn Negative ng/mL (Negative) 05/11/23 19:39 Ur Amphetamines Screen Positive ng/mL (Negative) H 05/11/23 19:39 U Benzodiazepines Scrn Negative ng/mL (Negative) 05/11/23 19:39 Urine Cocaine Screen Negative ng/mL (Negative) 05/11/23 19:39 U Marijuana (THC) Screen Negative ng/mL (Negative) 05/11/23 19:39 Ethyl Alcohol < 10 mg/dL (0-10) 05/11/23 18:32 Discharge Plan Discharge Patient Disposition: Home Clinical Impression: Constipation, Acute dehydration Condition: Stable Prescriptions: New Miralax 17 gram/dose powder 4 g PO DAILY Qty: 238 0RF dicyclomine 10 mg capsule 10 mg PO TID Qty: 14 0RF No Action pantoprazole [Protonix] 40 mg tablet,delayed release (DR/EC) 40 mg PO BID 42 Days Qty: 84 1RF acetaminophen 325 mg Tablet 650 mg PO QID PRN (Reason: Pain) Discharge Orders: Discharge ED (Routine); Ordered 05/11/23 Ordered By: Afia Rubio Referrals: Marixa Brown DO [Primary Care Provider] - Discharge Diet: Usual diet Discharge Activity: Increase activity as tolerated Patient Instructions: Dehydration - Adult, Constipation (ED) Activity Restrictions/Additional Instructions: Lab work today revealed no signs of any acute bacterial infection. Urinalysis is clear of any signs of bacteria or blood at this time. You are found to be dehydrated so we provided 2 bags of fluids for you. We also provided you medication to help with your symptoms of abdominal pain. CT examination revealed no concerns for an acute pancreatitis or pyelonephritis. You do have quite a bit of stool burden throughout your colon and I have provided you a prescription for MiraLAX. I recommend taking a capful of medication twice a day each mixed in 8 to 12 ounces of clear liquids. You also need to increase your clear fluids throughout the day for the next several days. I have also provided you medication to help with abdominal pains. Follow-up with your primary care provider in 2 to 3 days for general recheck or, return to the emergency department if change or worsening in condition. Coding Level of Care Code ED Client Technical Professional for Harmony Hussein
[2023-05-11 21:51] VITALS: BP 155/76; PULSE 87; RESP 22; TEMP 36.6; O2SAT 100
== END 2023-05-11 21:52 | disposition home or self-care (01) ==
PROVIDERS: Emergency Provider Physician Assistant; PCP Family Medicine
DX: K59.00 Constipation, unspecified (principal); E86.0 Dehydration; N18.9 Chronic kidney disease, unspecified; F17.210 Nicotine dependence, cigarettes, uncomplicated
CPT/HCPCS: 51798; 74177; 80053; 80306; 80307; 81003; 83690; 85025; 96361; 96374; 96375; 99285; J1885; J2270; J2405; J7030; Q9967